=== PATIENT | female | born 1940 | race Caucasian/White ===

== ENCOUNTER → 2022-10-22 14:15 | Outpatient (BNVA) | payer MEDICARE, OTHER, MEDICAID, SELFPAY | PROVIDERS: PCP Family Medicine; Visit Provider Specialist | DX: G20 Parkinson's disease; G82.50 Quadriplegia, unspecified | CPT/HCPCS: 99205 ==

== ENCOUNTER → 2023-05-19 11:14 | Outpatient (BNVA) | payer MEDICARE, OTHER, SELFPAY | PROVIDERS: PCP Family Medicine; Visit Provider Specialist | DX: G20.A1 Parkinson's disease without dyskinesia, without mention of fluctuations (principal); G82.50 Quadriplegia, unspecified | CPT/HCPCS: 64642; 99213; J0585 ==

== ENCOUNTER → 2023-08-18 14:02 | Outpatient (BNVA) | payer MEDICARE, OTHER, SELFPAY | PROVIDERS: PCP Family Medicine; Visit Provider Specialist | DX: G82.50 Quadriplegia, unspecified (principal); G20.A1 Parkinson's disease without dyskinesia, without mention of fluctuations | CPT/HCPCS: 64642; 64643; 99212; J0585 ==

== ENCOUNTER → 2023-11-17 13:13 | Outpatient (BNVA) | payer MEDICARE, OTHER, SELFPAY | PROVIDERS: PCP Family Medicine; Visit Provider Specialist | DX: G82.50 Quadriplegia, unspecified (principal); G20.A1 Parkinson's disease without dyskinesia, without mention of fluctuations; R03.0 Elevated blood-pressure reading, without diagnosis of hypertension | CPT/HCPCS: 64642; 64644; J0585 ==

== ENCOUNTER → 2024-02-24 10:00 | Outpatient (BNVA) | payer MEDICARE, OTHER, SELFPAY | PROVIDERS: PCP Family Medicine; Visit Provider Specialist | DX: G82.50 Quadriplegia, unspecified (principal); G20.A1 Parkinson's disease without dyskinesia, without mention of fluctuations; R03.0 Elevated blood-pressure reading, without diagnosis of hypertension | CPT/HCPCS: 64642; 99212; J0585 ==